=== PATIENT | male | born 1975 | race Caucasian/White ===

== ENCOUNTER 2021-11-06 02:13 | Inpatient (IN) | payer OTHER, SELFPAY ==
[2021-11-06] VITALS (7 sets, daily range): BP systolic 108–124; BP diastolic 65–77; PULSE 70–90; RESP 16–18; TEMP 36.6–36.8; O2SAT 95–98; BMI 23.4; BMI 23.7
[2021-11-06] MEDS: 0.9% Normal Saline 1,000 ML 1000 ML IV (02:54)
[2021-11-06] MEDS: Morphine 4 MG/ML Syringe IV (02:54)
[2021-11-06] MEDS: Ondansetron 4 MG/2 ML Vial IV (02:54)
[2021-11-06 02:56] LABS: Absolute Lymphocyte Count 0.98 X10^3/uL (0.83-4.51); Absolute Neutrophil Count 12.6 X10^3/uL (2.0-7.7); Basophil# 0.04 X10^3/uL; Basophil% 0.3 % (0-1); Eosinophil# 0.03 X10^3/uL; Eosinophils% 0.2 % (0-5); Hematocrit 44.3 % (40-54); Hemoglobin 15.6 g/dL (13.0-16.5); Lymphocyte # 0.98 X10^3/ul (0.83-4.51); Lymphocyte % 6.7 % (19-41); Mean Corp Hgb Conc 35.2 g/dL (32-36); Mean Corpuscular Hgb 31.8 pg (27.0-32.0); Mean Corpuscular Volume 90.4 fL (80-94); Mean Platelet Vol. 10.6 fl (6.2-12.0); Monocyte# 0.84 X10^3/uL; Monocyte% 5.8 % (0-10); NRBC Flagged by Analyzer 0 % (0-5); Neutrophil # 12.61 X10^3/uL (2.7-7.7); Neutrophil % 86.7 % (47-70); Platelet Count 341 K/mm3 (150-450); RBC Distribution Width CV 13.2 % (11.6-14.6); RBC Distribution Width SD 44.1 fl (35.1-43.9); White Blood Count 14.6 K/mm3 (4.4-11.0)
[2021-11-06 03:02] LABS: Mucous, Urine 0 SEEN /hpf (<or=2+); Red Blood Cells-Urine 0 SEEN /hpf (0-5); Squamous Epithelial Cells - UA 0 SEEN /hpf (0-5)
[2021-11-06 03:03] LABS: Color, Urine Yellow (Yellow); Glucose, Dipstick Normal (Normal); Ketone-Dipstick 5 mg/dl (Negative); Leukocyte Esterase-Dipstick 25 /ul (Negative); Nitrite-Dipstick Negative (Negative); Occult Blood-Urine Negative /ul (Negative); Protein-Dipstick 30 mg/dl (Negative); Urine Clarity Clear (Clear); Urine Urobilinogen 4 mg/dl (Normal)
[2021-11-06 03:08] LABS: ALB/GLOB Ratio 1.1 RATIO (0.9-2.4); AST(SGOT) 565 U/L (15-37); Alanine Aminotransfer ALT/SGPT 449 U/L (16-61); Albumin, Serum 3.7 g/dL (3.2-5.0); Alkaline Phosphatase 123 U/L (45-117); Anion Gap 4 (5-15); BUN 13 mg/dL (7-18); BUN/Creat Ratio 11.1 RATIO (10-20); Calcium,Total 9.5 mg/dL (8.5-10.1); Chloride 103 mmol/L (98-107); Creatinine, Serum 1.17 mg/dL (0.70-1.30); EST Glomerular Filtration Rate 71 mL/min (>60); Est Glom Filt Rate - Afr Amer 85 mL/min (>60); Estimated Creatinine Clearance 69.68 ml/min; Globulin 3.5 g/dL (2.2-4.2); Glucose 146 mg/dL (74-106); Lipase 80 U/L (73-393); Potassium 4.3 mmol/L (3.5-5.1); Protein, Total 7.2 g/dL (6.4-8.2); Sodium Level 138 mmol/L (136-145)
--- NOTE | 2021-11-06 03:11 | CT_ITS ---
STUDY: CT ABDOMEN AND PELVIS WITH CONTRAST REASON FOR EXAM: Male, 46 years old. Epigastric pain, history of choledocholithiasis RADIATION DOSAGE (If Supplied By Facility): CTDIvol = ( 12.42 ) mGy, DLP = ( 601.85 ) mGycm TECHNIQUE: Transaxial images were obtained from the dome of the diaphragm to the symphysis pubis without oral contrast. IV 100mL Isovue-300 was administered. Sagittal and coronal images were reconstructed. Individualized dose optimization techniques were used for this CT. COMPARISON: None. FINDINGS: Mild left lateral lung base dependent atelectasis. The visualized portions of the heart are within normal limits. Normal liver. There are surgical clips in the gallbladder fossa consistent with a prior cholecystectomy. Pneumobilia. Normal spleen. Normal pancreas. Normal bilateral adrenal glands. Normal right kidney. Normal left kidney. Normal visualized stomach. Normal small intestine. Normal colon. The appendix is visualized and appears normal. Normal abdominal aorta. Normal inferior vena cava. Normal retroperitoneum. Normal urinary bladder. There are prostatic calcifications. Normal abdominal wall. Normal osseous structures. CT/Abdomen/Pelvis W IV Cont ONLY IMPRESSION: Pneumobilia. Correlate with biliary instrumentation. Electronically Signed: Wes Syed MD at 4:49 EST ,
[2021-11-06 03:18] LABS: Urine Bilirubin Dipstick 1 mg/dL (Negative)
[2021-11-06 03:20] LABS: Amorphous Sediment 2+; Bacteria RARE /hpf (None Seen); White Blood Cells 0-5 SEEN /hpf (0-5)
--- NOTE | 2021-11-06 03:26 | EDS_ITS ---
HPI HPI - GI History of Present Illness Chief Complaint: Abd Pain Informant: patient and spouse/S.O. Narrative Narrative: Patient is a 46-year-old male with history of alcohol abuse, cholecystitis and choledocholithiasis complicated by acute cholangitis in March 2020 presenting with sudden onset of nausea, vomiting and cramping abdominal pain. Pain is in his epigastric region. It does not radiate. Patient states it feels like a cramping sensation. Had a low-grade temperature earlier tonight but no fever. States he has been feeling a little off after eating a bear claw earlier today and then after eating dinner which was broccoli cheese soup and salgado cheesecake he suddenly started feel bloated, had severe cramping pain in his epigastric region and then made himself vomit. He has had multiple episodes of vomiting since that were not self-induced. Denies any black or blood in his vomit. He has been having normal bowel movements with the last bowel movement this morning. Patient notes this does feel different than the last time he was hospitalized for his common bile duct. Patient states he drinks 1-4 beers a night normally. He states normally is closer to 2. States he does not just to try and get some sleep. Operative report from 07/30/2021 shows that patient had removal of the biliary stent endoscopically and had a Ai angiography. He had multiple stones and fragments removed without any complication. Patient had urgent ERCP in March 2021 for acute cholangitis related to choledocholithiasis with placement of stent. Records from 03/15/2021 shows that patient had a normal bilirubin at that time, AST of 25 and ALT of 106 with an alkaline phosphatase of 184. On admission on 03/12/2021 patient had a bilirubin of 1.4, alkaline phosphatase of 245, AST 272 and ALT 211. PFSH PFSH Home Medications NK 11/06/21 [History Last Taken Unknown] Allergy/AdvReac Type Severity Reaction Status Date / Time No Known Allergies Allergy Verified 11/06/21 02:19 Social History Smoking Status: Current every day smoker tobacco type: cigarettes ROS ROS ED Constitutional Constitutional ED: Reports chills; Denies fever(s) ENT ENT ED: Denies ear pain or sore throat Cardiovascular Cardiovascular: Denies chest pain Respiratory/Chest Respiratory/Chest: Denies cough or dyspnea Gastrointestinal Gastrointestinal: Reports abdominal pain, nausea and vomiting; Denies constipation or diarrhea Genitourinary Genitourinary ED: Denies dysuria Musculoskeletal Musculoskeletal: Denies arthralgias or myalgias Integumentary Denies rash Neurologic Neurologic: Denies headache(s) or weakness Psychiatric Psychiatric: Denies depression EXAM Physical Exam Const Vital Signs: 11/06/21 02:14 11/06/21 04:25 11/06/21 05:08 Temperature 97.8 F 98.3 F Temperature Source Oral Temporal Pulse Rate 90 89 Respiratory Rate 17 16 18 Blood Pressure 124/74 H 112/73 Blood Pressure Mean 90 86 Pulse Ox 98 95 Oxygen Delivery Method Room Air Room Air Positive well nourished and well developed General Appearance ED: well developed HEENT normocephalic and atraumatic Eyes PERRL and EOMs intact bilaterally Neck supple Resp normal respiratory effort and clear to auscultation bilaterally Cardio regular rate, regular rhythm and no murmurs GI non-distended Auscultation: normoactive bowel sounds Palpation: soft and tender epigastric; Negative for guarding or rigid Back/Spine no CVA tenderness Extremity full ROM General Extremety ED: Negative for edema or tenderness General Extremity: Negative for edema Neuro Sensorium / Orientation: alert Motor Exam: Negative for general weakness Psych mental status grossly normal Skin Lesions: no lesions Rashes: no rashes MDM MDM MDM Narrative Medical decision making narrative: Patient evaluated for sudden onset abdominal pain and low-grade temperature at home of 100.0. He is afebrile here. He is uncomfortable but no acute distress. No peritoneal findings on abdominal exam. Work-up is remarkable for leukocytosis of 14.6 and acute transaminitis with an elevated but total bili of 1.70. Lactate is 2.0. Blood cultures were added on and CT of the abdomen pelvis is obtained. This shows pneumobilia. Patient not had any recent instrumentation since July 2021. Patient is given a dose of Zosyn for concern of ascending cholangitis/choledocholithiasis. Case is discussed with MARQUITA, Dr. Brewster, who feels that admission would be reasonable and he will see the patient on the floor. Patient likely will require an ERCP. Patient has significant improvement of symptoms with Zofran and morphine in the ER. Is admitted to hospitalist service. Patient does have a history of regular alcohol use however given the acute onset of symptoms with a leukocytosis and a low-grade temperature and CT findings we will treat as if this is an infectious etiology until can be proven otherwise. Lab Data Attestation: I reviewed the patient's lab results. Labs: Laboratory Results - last 24 hr 11/06/21 11/06/21 11/06/21 02:20 02:20 02:20 WBC 14.6 H RBC 4.90 Hgb 15.6 Hct 44.3 MCV 90.4 MCH 31.8 MCHC 35.2 RDW Std Deviation 44.1 H RDW Coeff of Faizan 13.2 Plt Count 341 MPV 10.6 Immature Gran % (Auto) 0.300 Neut % (Auto) 86.7 H Lymph % (Auto) 6.7 L [place] % (Auto) 5.8 Eos % (Auto) 0.2 Baso % (Auto) 0.3 Absolute Neuts (auto) 12.6 H Absolute Lymphs (auto) 0.98 Nucleated RBC % 0 Sodium 138 Potassium 4.3 Chloride 103 Carbon Dioxide 31.0 Anion Gap 4 L BUN 13 Creatinine 1.17 Estim Creat Clear Calc 69.68 Est GFR (MDRD) Af Amer 85 Est GFR (MDRD) Non-Af 71 BUN/Creatinine Ratio 11.1 Glucose 146 H Lactic Acid 2.0 Calcium 9.5 Total Bilirubin 1.70 H AST 565 H ALT 449 H Alkaline Phosphatase 123 H Total Protein 7.2 Albumin 3.7 Globulin 3.5 Albumin/Globulin Ratio 1.1 Lipase 80 Urine Color Urine Clarity Urine pH Ur Specific [place] Urine Protein Urine Glucose (UA) Urine Ketones Urine Occult Blood Urine Nitrite Urine Bilirubin Urine Urobilinogen Ur Leukocyte Esterase Urine RBC Urine WBC Ur Squamous Epith Cells Amorphous Sediment Urine Bacteria Urine Mucus 11/06/21 02:59 WBC RBC Hgb Hct MCV MCH MCHC RDW Std Deviation RDW Coeff of Faizan Plt Count MPV Immature Gran % (Auto) Neut % (Auto) Lymph % (Auto) [place] % (Auto) Eos % (Auto) Baso % (Auto) Absolute Neuts (auto) Absolute Lymphs (auto) Nucleated RBC % Sodium Potassium Chloride Carbon Dioxide Anion Gap BUN Creatinine Estim Creat Clear Calc Est GFR (MDRD) Af Amer Est GFR (MDRD) Non-Af BUN/Creatinine Ratio Glucose Lactic Acid Calcium Total Bilirubin AST ALT Alkaline Phosphatase Total Protein Albumin Globulin Albumin/Globulin Ratio Lipase Urine Color Yellow Urine Clarity Clear Urine pH 8.0 Ur Specific [place] 1.010 Urine Protein 30 H Urine Glucose (UA) Normal Urine Ketones 5 H Urine Occult Blood Negative Urine Nitrite Negative Urine Bilirubin 1 H Urine Urobilinogen 4 H Ur Leukocyte Esterase 25 H Urine RBC 0 SEEN Urine WBC 0-5 SEEN Ur Squamous Epith Cells 0 SEEN Amorphous Sediment 2+ Urine Bacteria RARE Urine Mucus 0 SEEN Radiography Diagnostic Testing: Clinical Impression(s) from Imaging Studies Abdomen/Pelvis CT 11/06/21 03:11 IMPRESSION: Pneumobilia. Correlate with biliary instrumentation. Electronically Signed: Wes Syed MD at 4:49 EST , Discharge Plan Triage Chief Complaint: Abd Pain ED Provider: Niesha Yip Dx/Rx/DC Orders Clinical Impression: Ascending cholangitis, Pneumobilia, Transaminitis Prescriptions: No Action NK RF: 0 Primary Care Provider: Care Physician,No Primary Referrals: Care Physician,No Primary [Primary Care Provider] - Disposition Disposition: Acute Care Hospital [facility] [place]
--- NOTE | 2021-11-06 05:46 | PCM.HP.STD ---
[facility] - General General Date of Admission: 11/06/21 HPI Narrative GARRETT CHRISTENSEN, is a 46 M with significant history of cholecystectomy, choledocholithiasis with possible ascending cholangitis status post biliary placement and removal who presents to the emergency department with a severe persistent nonradiating epigastric cramping pain that started few hours before presentation. He denied any aggravating factors. Vomiting helped improve his pain. And associated with her symptoms is nausea and vomiting. About 10 or more years ago patient had a cholecystotomy secondary to gallstones. About a year ago he had a choledocholithiasis with possible ascending cholangitis and he had biliary stent placed which was later removed. Although the characteristics his present symptom is similar to that of last year, his epigastric pain last year was sharp while his present pain is cramping. He denied any jaundiced. However upon prompting his significant other who was at the bedside thinks that patient's bilateral arms are jaundiced but patient denies. [facility] Medical History (Updated 11/06/21 @ 06:[address] Efraín Virgen MD) Choledocholithiasis Home Medications NK 11/06/21 [History Last Taken Unknown] Allergy/AdvReac Type Severity Reaction Status Date / Time No Known Allergies Allergy Verified 11/06/21 02:19 Family History (Updated 11/06/21 @ 06:[address] Efraín Virgen MD) Other Diabetes Heart disease Hypertension Social History (Updated 11/06/21 @ 06:[address] Efraín Virgen MD) Smoking Status: Current every day smoker tobacco type: cigarettes alcohol intake: current ROS ROS Narrative Constitutional: Reports low-grade fever (100.0 Fahrenheit) and chills. Denies change in weight Eyes: Denies blurry vision, change in eye color, change in vision, discharge from eye(s), double vision, erythema, eye pain, loss of vision or other HEENT: Denies abnormal hearing, dysphagia, ear pain, epistaxis, headache(s), hearing loss, nasal congestion, nasal discharge, post nasal drip, sinus pressure, sore throat or other Cardiovascular: Denies chest pain or palpitations. Denies dyspnea on exertion, orthopnea and paroxysmal nocturnal dyspnea Respiratory/Chest: Denies cough, excessive phlegm production, shortness of breath with exertion and wheezing Gastrointestinal: Reports epigastric pain, nausea and vomiting. Denies constipation, diarrhea, dyspepsia, hematemesis, hematochezia, loose stools, melena, or other Genitourinary: Denies burning urination, difficulty urinating, dysuria, hematuria, nocturia, urinary frequency, urinary hesitancy, urinary incontinence, urinary urgency or other Musculoskeletal: Denies arthralgias, back pain, joint pain, joint stiffness, joint swelling, myalgias, neck pain or other Neurologic: Denies abnormal gait, abnormal speech, confusion, disequilibrium, dizziness, focal weakness, headache(s), numbness, paresthesias, seizure-like activity, seizures, syncope, tingling, tremor(s) or other Psychiatric: Denies anxiety, depression, homicidal ideation, suicidal ideation or other Endocrinology: Denies change in body appearance, cold intolerance, excessive sweating, heat intolerance, polydipsia, polyuria or other Hematologic/Lymphatic: Denies anemia, easy bleeding, easy bruising, lymphadenopathy or other Integumentary: Denies rashes Allergic/Immunologic: Denies rhinitis, hives, eczema, asthma or other Vital Signs Vital Signs Vital Signs: 11/06/21 02:14 11/06/21 04:25 11/06/21 05:08 Temperature 97.8 F 98.3 F Temperature Source Oral Temporal Pulse Rate 90 89 Respiratory Rate 17 16 18 Blood Pressure 124/74 H 112/73 Blood Pressure Mean 90 86 Pulse Ox 98 95 Oxygen Delivery Method Room Air Room Air Weight Weight: 65.9 kg Body Mass Index (BMI) 23.4 Physical Exam Narrative Physical exam: General: Well-nourished, well-developed. Head: Normocephalic, atraumatic, no tenderness Eyes: PERRLA, EOMI ENT, no trauma, moist mucous membranes, no rhinorrhea Neck: Nontender, full range of motion, no spinal tenderness, deformities, step-off CVS: Regular rate and rhythm. S1-S2 present. No murmur, gallop or rub. Respiratory : clear to auscultation bilaterally, chest wall nontender, no wheezing Abdomen: Soft, nontender, nondistended, normal bowel sounds, no masses : Deferred Back: Nontender, no CVA tenderness, no midline spinal tenderness, deformities, step-offs Extremities: Nontender full range of motion, no trauma Skin: Normal color of other parts of body but bilateral arms yellowish. No trauma, abrasions Neuro: Alert, oriented, cranial nerves II through XII grossly intact. Psychiatry: Normal mood. Normal affect. Not depressed. Not anxious. Results Lab / Micro Data Result Diagrams: 11/06/21 02:20 11/06/21 02:20 Labs: Laboratory Results - last 24 hr 11/06/21 02:20: WBC 14.6 H, RBC 4.90, Hgb 15.6, Hct 44.3, MCV 90.4, MCH 31.8, MCHC 35.2, RDW Std Deviation 44.1 H, RDW Coeff of Faizan 13.2, Plt Count 341, MPV 10.6, Immature Gran % (Auto) 0.300, Neut % (Auto) 86.7 H, Lymph % (Auto) 6.7 L, [place] % (Auto) 5.8, Eos % (Auto) 0.2, Baso % (Auto) 0.3, Absolute Neuts (auto) 12.6 H, Absolute Lymphs (auto) 0.98, Nucleated RBC % 0 11/06/21 02:20: Sodium 138, Potassium 4.3, Chloride 103, Carbon Dioxide 31.0, Anion Gap 4 L, BUN 13, Creatinine 1.17, Estim Creat Clear Calc 69.68, Est GFR (MDRD) Af Amer 85, Est GFR (MDRD) Non-Af 71, BUN/Creatinine Ratio 11.1, Glucose 146 H, Calcium 9.5, Total Bilirubin 1.70 H, AST 565 H, ALT 449 H, Alkaline Phosphatase 123 H, Total Protein 7.2, Albumin 3.7, Globulin 3.5, Albumin/Globulin Ratio 1.1, Lipase 80 11/06/21 02:20: Lactic Acid 2.0 11/06/21 02:59: Urine Color Yellow, Urine Clarity Clear, Urine pH 8.0, Ur Specific [place] 1.010, Urine Protein 30 H, Urine Glucose (UA) Normal, Urine Ketones 5 H, Urine Occult Blood Negative, Urine Nitrite Negative, Urine Bilirubin 1 H, Urine Urobilinogen 4 H, Ur Leukocyte Esterase 25 H, Urine RBC 0 SEEN, Urine WBC 0-5 SEEN, Ur Squamous Epith Cells 0 SEEN, Amorphous Sediment 2+, Urine Bacteria RARE, Urine Mucus 0 SEEN Radiology Impression Abdomen/Pelvis CT 11/06/21 03:11 IMPRESSION: Pneumobilia. Correlate with biliary instrumentation. Electronically Signed: Wes Syed MD at 4:49 EST , Assessment & Plan Assessment/Plan (1) Choledocholithiasis: (2) Ascending cholangitis: PLAN: Suspected cholangitis. Patient reported chills and a low-grade fever. Review of labs showed white count of 14.6. Abdomen and pelvis CT was visualized and independently interpreted and I agree with radiologist interpretation of pneumobilia and absent gallbladder. Review of labs showed transaminitis (AST 565, ALT 449); mildly elevated alkaline phosphatase (123) and elevated total bilirubin (1.70). Emergent department doctor upon review of [facility] reports that on 03/15/2021 patient AST was 25, ALT was 106 and alkaline phosphatase was 184 at that time. Further per report from ED doctor on 03/12/2021 bilirubin was 1.4, alkaline phosphatase was 245, AST was 272 and ALT was 211. Will trend CBC and CMP. Gentle IV hydration. Morphine IV as needed for pain. Zofran IV as needed for nausea/vomiting. Emergent bilateral discussed the case with a GI who will follow. GI consult. We will keep patient n.p.o. Tobacco abuse Smokes about 2 packs/day. Counseled. Nicotine patch prescribed Alcohol abuse Drinks about 1 to 4 cans of beer per day. Reportedly previously he was a heavy drinker. Denies history of withdrawal with previous hospitalizations. Clinical monitoring. DVT prophylaxis SCD ordered. Charges/Coding Visit Charges Inpatient E&M: 51908 Init Hosp L3
[2021-11-06 06:53] LABS: Reflex Lactate? Y
[2021-11-06] MEDS: 0.9% Normal Saline 1,000 ML 75 ML IV (06:57)
[2021-11-06 07:43] LABS: Lactic Acid 1.8 mmol/L (0.4-1.9)
--- NOTE | 2021-11-06 09:09 | US_ITS ---
STUDY: ABDOMINAL ULTRASOUND - RIGHT UPPER QUADRANT REASON FOR VISIT: Male, 46 years old Ascending cholangitis, RUQ pain, jaundice, fever -- Elevated LFT -- HX OF CHOLECYSTECTOMY 2011 TECHNIQUE: Ultrasound evaluation of the right upper quadrant was performed with real-time and static padilla-scale imaging. TECHNICAL QUALITY: Adequate. COMPARISON: None. FINDINGS: Liver: The liver measures 18 cm. There is a heterogeneous echogenicity of the liver. There are somewhat dilated biliary ducts. Artifacts consistent with pneumobilia There is hepatic color flow. The direction of portal flow is hepatopetal. There is no demonstrated mass lesion. Gallbladder: The patient is status post cholecystectomy. Common Bile Duct (C.B.D.): The common bile duct measures 7 mm. Pancreas: Normal size of the head, body and tail of the pancreas. There is normal echogenicity of the pancreas. There is no demonstrated pancreatic mass or cyst. Minimal prominence of the pancreatic duct. Right Kidney: Normal size of the right kidney. The right kidney measures 10.6 x 5.5 x 4.4 cm. Normal renal cortex. The right cortex measures 1.3 cm. There is no demonstrated renal mass or cyst. There is no right hydronephrosis. US/Abdomen Limited IMPRESSION: 1. Hepatomegaly. 2. Somewhat heterogeneous liver which may reflect fatty infiltration or hepatomegaly disease. 3. Status post cystectomy. 4. Pneumobilia. Electronically Signed: Slade Lloyd, at 15:50 EST ,
--- NOTE | 2021-11-06 11:17 | EX.PCM.CON.G ---
HPI Consult Data Date of Consult: 11/06/21 HPI Narrative HPI Narrative: GARRETT CHRISTENSEN, is a 46 M who presents with past medical history of cholecystitis status post cholecystectomy. He has had 2 episodes of acute choledocholithiasis 1 prior to him undergoing cholecystectomy and the second 1 approximately year later requiring ERCP on 2 separate occasions. His last ERCP was back in June when he had a stent removal from the previous ERCP with stone removal and stent placement. He arrives here with worsening abdominal pain with fever and chills. Patient came to the ED for evaluation. On biochemical evaluation he was discovered to have a bilirubin of 1.7, alkaline phosphatase 134, AST of 500 and ALT of 500. His white blood cell count was also elevated at 14. He was started on IV antibiotics and a CT scan abdomen pelvis was ordered. It did show pneumobilia but no filling defect in the common bile duct. It also showed intra and extrahepatic ductal dilation. At this time he is not have any abdominal pain. An ultrasound was ordered along with repeat labs. [facility] Medical History Choledocholithiasis Smoker Home Medications NK 11/06/21 [History Last Taken Unknown] Allergy/AdvReac Type Severity Reaction Status Date / Time No Known Allergies Allergy Verified 11/06/21 02:19 Family History (Updated 11/06/21 @ 06:[address] Efraín Virgen MD) Other Diabetes Heart disease Hypertension Social History (Updated 11/06/21 @ 06:[address] Efraín Virgen MD) Smoking Status: Current every day smoker tobacco type: cigarettes alcohol intake: current ROS Review of Systems ROS Unobtainable: other Constitutional Constitutional: Denies fatigue, fever(s), poor appetite, weight gain or weight loss ENT HEENT: Denies mouth lesions Cardiovascular Cardiovascular: Denies abdominal bloating, abdominal edema or abdominal pain Respiratory/Chest Respiratory/Chest: Denies change in mental status, change in phlegm color, chest congestion or chest tightness Gastrointestinal Gastrointestinal: Denies belching, bloating, change in bowel habits, change in stool character, chewing difficulty, coffee ground emesis, constipation, cramping, diarrhea, dyspepsia, dysphagia, early satiety, excessive flatus, fecal incontinence, heartburn, hematemesis, hematochezia, hemorrhoids, loose stools, melena, nausea, odynophagia, rectal bleeding, tenesmus, vomiting or weight changes Genitourinary Genitourinary: Denies abdominal discomfort, burning urination or itching Musculoskeletal Musculoskeletal: Reports as per HPI; Denies muscle weakness or myalgias Integumentary Integumentary: Denies jaundice Neurologic Neurologic: Denies lack of coordination or weakness Psychiatric Psychiatric: Denies confusion, depression, memory loss, mood swings, paranoia or suicidal ideation Endocrine Endocrinology: Denies systems reviewed and no addt'l complaints, except as documented Hematologic/Lymphatic Hematologic/Lymphatic: Denies anemia, easy bleeding, easy bruising or lymphadenopathy Allergic/Immunologic Allergic/Immunologic: Denies systems reviewed and no addt'l complaints, except as documented Physical Exam Const alert General Appearance: cooperative Orientation / Consciousness: oriented to person HEENT hearing grossly normal bilaterally Head and Scalp: normal to inspection Face and Sinus: face symmetric Nose: external nose normal Mouth: oral and palatal mucosa normal Eyes conjunctivae normal General Eye: normal appearance of both eyes Neck full ROM General: normal visual inspection Lymph Lymphatic: no lymphadenopathy noted Chest inspection of chest normal and palpation of chest normal Chest: symmetrical chest wall rise Resp normal respiratory effort Effort and Inspection: able to speak in complete sentences Cardio regular rate GI non-distended Percussion: normal to percussion Rectal Exam: deferred Neuro Speech: speech normal Gait (Neuro): normal gait Lab / Micro Data Result Diagrams: 11/06/21 02:20 11/06/21 02:20 Labs: Laboratory Results - last 24 hr 11/06/21 02:20: WBC 14.6 H, RBC 4.90, Hgb 15.6, Hct 44.3, MCV 90.4, MCH 31.8, MCHC 35.2, RDW Std Deviation 44.1 H, RDW Coeff of Faizan 13.2, Plt Count 341, MPV 10.6, Immature Gran % (Auto) 0.300, Neut % (Auto) 86.7 H, Lymph % (Auto) 6.7 L, [place] % (Auto) 5.8, Eos % (Auto) 0.2, Baso % (Auto) 0.3, Absolute Neuts (auto) 12.6 H, Absolute Lymphs (auto) 0.98, Nucleated RBC % 0 11/06/21 02:20: Sodium 138, Potassium 4.3, Chloride 103, Carbon Dioxide 31.0, Anion Gap 4 L, BUN 13, Creatinine 1.17, Estim Creat Clear Calc 69.68, Est GFR (MDRD) Af Amer 85, Est GFR (MDRD) Non-Af 71, BUN/Creatinine Ratio 11.1, Glucose 146 H, Calcium 9.5, Total Bilirubin 1.70 H, AST 565 H, ALT 449 H, Alkaline Phosphatase 123 H, Total Protein 7.2, Albumin 3.7, Globulin 3.5, Albumin/Globulin Ratio 1.1, Lipase 80 11/06/21 02:20: Lactic Acid 2.0 11/06/21 02:59: Urine Color Yellow, Urine Clarity Clear, Urine pH 8.0, Ur Specific [place] 1.010, Urine Protein 30 H, Urine Glucose (UA) Normal, Urine Ketones 5 H, Urine Occult Blood Negative, Urine Nitrite Negative, Urine Bilirubin 1 H, Urine Urobilinogen 4 H, Ur Leukocyte Esterase 25 H, Urine RBC 0 SEEN, Urine WBC 0-5 SEEN, Ur Squamous Epith Cells 0 SEEN, Amorphous Sediment 2+, Urine Bacteria RARE, Urine Mucus 0 SEEN 11/06/21 07:10: Lactic Acid 1.8 Radiology Impression Abdomen/Pelvis CT 11/06/21 03:11 IMPRESSION: Pneumobilia. Correlate with biliary instrumentation. Electronically Signed: Wes Syed MD at 4:49 EST , Assessment & Plan Assessment/Plan (1) Ascending cholangitis: PLAN: At this time he is not showing any signs of a sending cholangitis. I recommend a repeat his CBC, CMP. I recommend to get blood cultures. If his CBC, CMP are improving and if his ultrasound does not show any filling defects in his common bile duct then he can eat. (2) Pneumobilia: PLAN: I recommend ursodiol 250 or 300 mg twice a day for 1 year to increase bile flow and change his bile. Charges/Coding Visit Charges Inpatient E&M: 45349 Init Hosp L3
[2021-11-06 12:28] LABS: AST(SGOT) 455 U/L (15-37); Alanine Aminotransfer ALT/SGPT 524 U/L (16-61); Albumin, Serum 3.3 g/dL (3.2-5.0); Alkaline Phosphatase 120 U/L (45-117); Bilirubin, Direct 0.98 mg/dL (0.00-0.30); GGTP 560 U/L (15-85); Globulin 3.5 g/dL (2.2-4.2); Protein, Total 6.8 g/dL (6.4-8.2)
--- NOTE | 2021-11-06 12:28 | PN.HOSP_ITS ---
Subjective Subjective The patient has no fever or chills. No tachycardia. Blood pressure normal. Patient abdominal pain has resolved. Patient admitted with fever chills, severe right upper quadrant abdominal pain, 10/10 in intensity. Objective Data Objective Data Vital Signs: Vital Signs Temp Pulse Resp BP Pulse Ox 98.1 F 87 16 111/73 97 11/06/21 06:24 11/06/21 06:24 11/06/21 06:24 11/06/21 06:24 11/06/21 06:24 Oxygen Delivery Method Room Air Weight: 146 lb 13.246 oz Body Mass Index (BMI) 23.7 Intake & Output: Intake and Output for Last 24 Hours 11/04/21 11/05/21 11/06/21 23:59 23:59 23:59 Intake Total 1050 / 1050 Balance 1050 / 1050 Lab / Micro Data Result Diagrams: 11/06/21 02:20 11/06/21 02:20 Labs: Laboratory Results - last 24 hr 11/06/21 02:20: WBC 14.6 H, RBC 4.90, Hgb 15.6, Hct 44.3, MCV 90.4, MCH 31.8, MCHC 35.2, RDW Std Deviation 44.1 H, RDW Coeff of Faizan 13.2, Plt Count 341, MPV 10.6, Immature Gran % (Auto) 0.300, Neut % (Auto) 86.7 H, Lymph % (Auto) 6.7 L, [place] % (Auto) 5.8, Eos % (Auto) 0.2, Baso % (Auto) 0.3, Absolute Neuts (auto) 12.6 H, Absolute Lymphs (auto) 0.98, Nucleated RBC % 0 11/06/21 02:20: Sodium 138, Potassium 4.3, Chloride 103, Carbon Dioxide 31.0, Anion Gap 4 L, BUN 13, Creatinine 1.17, Estim Creat Clear Calc 69.68, Est GFR (MDRD) Af Amer 85, Est GFR (MDRD) Non-Af 71, BUN/Creatinine Ratio 11.1, Glucose 146 H, Calcium 9.5, Total Bilirubin 1.70 H, AST 565 H, ALT 449 H, Alkaline Phosphatase 123 H, Total Protein 7.2, Albumin 3.7, Globulin 3.5, Albumin/Globulin Ratio 1.1, Lipase 80 11/06/21 02:20: Lactic Acid 2.0 11/06/21 02:59: Urine Color Yellow, Urine Clarity Clear, Urine pH 8.0, Ur Specific York 1.010, Urine Protein 30 H, Urine Glucose (UA) Normal, Urine Ketones 5 H, Urine Occult Blood Negative, Urine Nitrite Negative, Urine Bilirubin 1 H, Urine Urobilinogen 4 H, Ur Leukocyte Esterase 25 H, Urine RBC 0 SEEN, Urine WBC 0-5 SEEN, Ur Squamous Epith Cells 0 SEEN, Amorphous Sediment 2+, Urine Bacteria RARE, Urine Mucus 0 SEEN Radiography Diagnostic Testing: Radiology Impression Abdomen/Pelvis CT 11/06/21 03:11 IMPRESSION: Pneumobilia. Correlate with biliary instrumentation. Electronically Signed: Wes Syed MD at 4:49 EST , Physical Exam Narrative General: Alert, Oriented x3, Cooperative HEENT: Atraumatic, PERRLA, EOMI, Normocephalic. No icterus. Oral: No Gingival or Mucosal Lesions/ Ulcerations Neck: Supple, No JVD, Negative Carotid Bruits Lungs: Air entry diminished in bilateral lung bases. No crepitation/rhonchi Cardiovascular: Regular rate, Regular Rhythm, Normal S1, Normal S2, No murmurs Abdomen: Soft, mild tenderness on the right upper quadrant on deep palpation. Bowel Sounds Present, Non-Distended. Liver not enlarged. No palpable mass. : No renal angle tenderness. No suprapubic tenderness. Extremities: No edema, Capillary Refill Less than 3 Seconds Skin: No rashes, No breakdown Musculoskeletal: No Tenderness to Palpation of Joints or Extremities Neurological: Cranial nerves II-XII grossly intact, DTR 2+/4 and Symmetrical, Neuro grossly intact Psych/Mental Status: Normal Affect, Appropriate. Assessment & Plan Assessment/Plan (1) Choledocholithiasis: (2) Ascending cholangitis: PLAN: 1. Suspected ascending cholangitis: Patient admitted with right upper quadrant abdominal pain, fever and chills, leukocytosis with left shift but clinically did not had jaundice. Patient has seen metallic yarn slitting machine operator Dr. Orr in [facility] and had 2 episodes of choledocholithiasis. First time he had cholecystectomy. Second episode in March 2020 when he had ERCP with a stent placement then repeat ERCP in first week of July for stent removal. Since then he did not had issues of abdominal pain. In the morning patient is afebrile, abdominal pain has resolved. Patient wants to eat and clear liquid ordered. Discussed with metallic yarn slitting machine operator Dr. Brewster. We agreed on repeating liver profile. Admitting liver chemistry shows total bilirubin 1.7. ALT and AST elevated about 10 times normal. Alkaline phosphatase 123. Lipase normal. Anion gap below 4. CT abdomen independently reviewed. It shows pneumobilia with surgical clips has been requested today. Normal spleen and pancreas. Right upper quadrant sonogram ordered. Started on ursodiol to 50 mg twice daily to be continued for 1 year. GI consult reviewed and appreciated. No plan for ERCP/MRCP. 2. Chronic chronic cigarette smoking/nicotine use and dependence: The patient smokes cigarettes about 2 packs/day. Nicotine patch prescribed. 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 Denies history of chronic shortness of breath/dyspnea but has mild smoker's cough as he described. Never been tested for PFT. 3. Chronic alcohol abuse Drinks about 1 to 4 cans of beer per day. Reportedly previously he was a heavy drinker. Denies history of withdrawal with previous hospitalizations. Clinical monitoring. 4. DVT prophylaxis SCD ordered. Charges/Coding Visit Charges Inpatient E&M: 77755 Subs Hosp L2
[2021-11-06] MEDS: Ursodiol 250 MG Tablet PO ×2 (13:18→21:39)
--- NOTE | 2021-11-06 16:15 | CASEMGMT ---
RN CM SPECIAL EVENTS MANAGER CM to room to meet with patient for initial transition planning/care coordination assessment. CHIP DOLAN introduced self and role at [facility]. Pt voices understanding and consents to assessment at this time. Pt resting in bed in no distress at this time. Pt is A/O at this time and answers all questions appropriately. Care providers, pharmacy, and demographics verified/updated at this time. PCP: No PCP. Pt provided w/list of local PCP's. Specialists:Dr Orr @ [facility]--gastroenterology Preferred Pharmacy: [facility] [place] Insurance: [employer] Living Will/HPOA: Pt does not currently have LW/HCPOA and declines info at this time. Pt made aware that he can contact as an out-pt and make appt in the future if he decides he would like to talk with someone about this or would like to utilize [facility] social work for advanced directive completion. Given Commissioning Editor Rac card with information and contact number. Pt expresses understanding. LNOK: Father, Timi Claros. Living Arrangements: Lives w/his sig other, Vianey Barcenas in mobile home w/4 steps to enter. Independent w/ADL's and IADL's. 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 ETOH: Drinks 0-4 beers/day. States he used to drink a lot more until he got a DUI. He states he only drinks now to help him sleep. Denies wanting any resources to help quit. Smoker: 2 PPD Transportation: Pt states drives self and states no transportation concerns at this time. DME: Denies using any DME and denies needs. HHC/SNF: No hx of either. No needs identified. Pt wishes to return home and states has no concerns with going home at time of discharge. Pt voices no further concerns/needs at this time. Advised pt to ask for CM if any further questions/concerns/needs arise. Voices understanding. PLAN: Home w/discharge plans in place. Mello BUCHANAN RN, CM
[2021-11-07] VITALS (7 sets, daily range): BP systolic 113–141; BP diastolic 73–87; PULSE 58–97; RESP 16–18; TEMP 36.4–37; O2SAT 95–100
--- NOTE | 2021-11-07 | FLU_PTH ---
PATIENT: GARRETT CHRISTENSEN LOC: [facility]3 U#:[id number] AGE/SX: 46/M ROOM: [facility] RE11/06/[address]: Dr. Rene Bird MD : 1975 BED: 1 DIS: 11/07/2021 SPEC #: [id number] RECD: 11/07/21 09:19 STATUS: CHARISMA REQ #: [id number] BETTY: 11/07/21 00:[address]: Luis Felipe Brewster DEPT: CYTOLOGY RECD BY: Jacob Currie ENTERED: 11/08/21 08:28 SP TYPE: Fluid OTHR DR: MD Dr. Rene Pearson MD Dr. Rahsaan Friend, DO No Primary Care Phys Tissues: Bile duct, NOS Procedures: Special Stain Group II Surgery Specimen Level IV Comments: @ Ordering doctor for SSII edited from to @ by MOHSEN at 11/08/21923 @ Ordering doctor for SUIV edited from to DR.RFRIEN Anna by MOHSEN at 11/08/21923 @ Submitting doctor edited from to @ by MOHSEN at 11/08/21923 HEADER OPERATION: ERCP PRE-OP DIAGNOSIS: Ascending cholangitis TISSUE SUBMITTED: A ? Distal common bile duct brush tip, B - Distal common bile duct slides x3 DIAGNOSIS CYTOLOGY A. Common bile duct brushings (cell block): Negative for malignant cells. See comment. B. Common bile duct brushing (smears): Negative for malignant cells. AM:elinor 11/09/2021 COMMENT A. The specimen is essentially acellular. Clinical correlation is suggested. CYTOLOGY STUDY Slides are reviewed. CYTOLOGY GROSS A - Received is a metallic endoscopic cytobrush with adherent minute fragments of myers-red tissue brush in 2 ml of clear red fluid and labeled with the patient's name and and designated per the requisition as brush. The material is dislodged from the brush and submitted for cytology preparation including cell block. B - Received are three smears labeled with the patient's name and designated per the requisition as distal common bile duct. Submitted for staining. / elinor 11/08/2021 TC:5 CPT: 04309, 96397
[2021-11-07 06:18] LABS: Absolute Lymphocyte Count 0.89 X10^3/uL (0.83-4.51); Absolute Neutrophil Count 4.9 X10^3/uL (2.0-7.7); Basophil# 0.05 X10^3/uL; Basophil% 0.7 % (0-1); Eosinophil# 0.35 X10^3/uL; Eosinophils% 5.2 % (0-5); Hematocrit 43.5 % (40-54); Hemoglobin 14.4 g/dL (13.0-16.5); Lymphocyte # 0.89 X10^3/ul (0.83-4.51); Lymphocyte % 13.2 % (19-41); Mean Corp Hgb Conc 33.1 g/dL (32-36); Mean Corpuscular Hgb 30.6 pg (27.0-32.0); Mean Corpuscular Volume 92.6 fL (80-94); Mean Platelet Vol. 10.4 fl (6.2-12.0); Monocyte# 0.55 X10^3/uL; Monocyte% 8.2 % (0-10); NRBC Flagged by Analyzer 0 % (0-5); Neutrophil # 4.88 X10^3/uL (2.7-7.7); Neutrophil % 72.6 % (47-70); Platelet Count 282 K/mm3 (150-450); RBC Distribution Width CV 13.8 % (11.6-14.6); RBC Distribution Width SD 47.5 fl (35.1-43.9); White Blood Count 6.7 K/mm3 (4.4-11.0)
[2021-11-07 06:45] LABS: ALB/GLOB Ratio 0.8 RATIO (0.9-2.4); AST(SGOT) 124 U/L (15-37); Alanine Aminotransfer ALT/SGPT 349 U/L (16-61); Albumin, Serum 3.1 g/dL (3.2-5.0); Alkaline Phosphatase 154 U/L (45-117); Anion Gap 2 (5-15); BUN 13 mg/dL (7-18); BUN/Creat Ratio 12.5 RATIO (10-20); Calcium,Total 8.9 mg/dL (8.5-10.1); Chloride 109 mmol/L (98-107); Creatinine, Serum 1.04 mg/dL (0.70-1.30); EST Glomerular Filtration Rate 81 mL/min (>60); Est Glom Filt Rate - Afr Amer 98 mL/min (>60); Estimated Creatinine Clearance 78.39 ml/min; Globulin 3.7 g/dL (2.2-4.2); Glucose 101 mg/dL (74-106); Protein, Total 6.8 g/dL (6.4-8.2); Sodium Level 137 mmol/L (136-145)
--- NOTE | 2021-11-07 08:00 | RAD_ITS ---
ERCP INDICATION: Abdominal pain. Fluoroscopy time: 1:58 Images obtained: 13 FINDINGS: Status post cholecystectomy. Moderate extrahepatic and intrahepatic biliary ductal dilatation treated with placement of a stent in the distal common bile duct. IMPRESSION: Stricture of the distal common bile duct treated with the stent placement. Electronically Signed: Travon Emery MD at 9:24 EST , RAD/ERCP Biliary Only
--- NOTE | 2021-11-07 09:07 | OP.CCLET_ITS ---
11/07/2021 No Primary Care Physician Re : ERCP procedure for Chuck Claros Dear Care Physician This procedure was performed on Sunday, November 07, 2021. My impressions and recommendations are as follows: Impressions : - The entire main bile duct was dilated, uncertain significance. - The patient has had a cholecystectomy. - Choledocholithiasis was found. Complete removal was accomplished by biliary sphincterotomy and balloon extraction. - A biliary sphincterotomy was performed. - The biliary tree was swept. Recommendations : My findings are described in the full procedure note, which is enclosed. If I can be of further assistance, please feel free to contact me at . Sincerely, Luis Felipe Brewster, 11/07/2021 9:06:54 AM This report has been signed electronically.
--- NOTE | 2021-11-07 09:07 | OP.ERCP_ITS ---
Patient Name: Chuck Claros Procedure Date: 11/07/2021 8:00 AM Date of : 1975 Age: 46 Procedure: ERCP Indications: Common bile duct stone(s), Suspected ascending cholangitis Providers: Luis Felipe Brewster DO Medicines: General Anesthesia Patient Profile: This is a 46 year old male. Refer to note in patient chart for documentation of history and physical. Patient has symptoms of acute right upper quadrant abdominal pain, acute jaundice and acute vomiting. He is status post ERCP for stone removal within the past six months. Complications: No immediate complications. Procedure: Pre-Anesthesia Assessment: - Prior to the procedure, a History and Physical was performed, and patient medications and allergies were reviewed. The patient is competent. The risks and benefits of the procedure and the sedation options and risks were discussed with the patient. All questions were answered and informed consent was obtained. Patient identification and proposed procedure were verified by the physician in the pre-procedure area. Mental Status Examination: alert and oriented. Airway Examination: normal oropharyngeal airway and neck mobility. Respiratory Examination: clear to auscultation. CV Examination: normal. Prophylactic Antibiotics: The patient does not require prophylactic antibiotics. Prior Anticoagulants: The patient has taken no previous anticoagulant or antiplatelet agents. After reviewing the risks and benefits, the patient was deemed in satisfactory condition to undergo the procedure. The anesthesia plan was to use moderate sedation / analgesia (conscious sedation). Immediately prior to administration of medications, the patient was re-assessed for adequacy to receive sedatives. The heart rate, respiratory rate, oxygen saturations, blood pressure, adequacy of pulmonary ventilation, and response to care were monitored throughout the procedure. The physical status of the patient was re-assessed after the procedure. After obtaining informed consent, the scope was passed under direct vision. Throughout the procedure, the patient's blood pressure, pulse, and oxygen saturations were monitored continuously. The [id number] endoscope was introduced through the mouth, and advanced to the duodenum and used to cannulate the bile duct. The ERCP was accomplished without difficulty. The patient tolerated the procedure well. Moderate Sedation: Moderate (conscious) sedation was administered by the endoscopy nurse and supervised by the endoscopist. The patient's oxygen saturation, heart rate, blood pressure and response to care were monitored. Total physician intraservice time was 15 minutes. Scope In: 8:35:59 AM Scope Out: 9:04:15 AM Total Procedure Duration Time 0 hours 28 minutes 16 seconds Findings: The labor relations manager film was normal. The esophagus was successfully intubated under direct vision. The scope was advanced to a normal major papilla in the descending duodenum without detailed examination of the pharynx, larynx and associated structures, and upper GI tract. The upper GI tract was grossly normal. The bile duct was deeply cannulated with the short-nosed traction sphincterotome. Contrast was injected. I personally interpreted the bile duct images. There was brisk flow of contrast through the ducts. Image quality was excellent. Contrast extended to the entire biliary tree. Opacification of the main bile duct was successful. The maximum diameter of the ducts was 10 mm. The lower third of the main bile duct contained one stone, which was 6 mm in diameter. The main bile duct was diffusely dilated, uncertain significance. The largest diameter was 10 mm. A cholecystectomy had been performed. A straight Roadrunner wire was passed into the biliary tree. A 5 mm biliary sphincterotomy was made with a traction (standard) sphincterotome using ERBE electrocautery. The sphincterotomy oozed blood. The biliary tree was swept with a 12 mm balloon starting at the lower third of the main duct. Sludge was swept from the duct. All stones were removed. Dilation of the common bile duct with a 6-7-8 mm balloon (to a maximum balloon size of 8 mm) dilator was successful. One 10 mm by 6 cm covered metal stent was placed 5 cm into the common bile duct. Bile flowed through the stent. The stent was in good position. Cells for cytology were obtained by brushing in the lower third of the main bile duct. Impression: - The entire main bile duct was dilated, uncertain significance. - The patient has had a cholecystectomy. - Choledocholithiasis was found. Complete removal was accomplished by biliary sphincterotomy and balloon extraction. - A biliary sphincterotomy was performed. - The biliary tree was swept. Procedure Code(s): --- Professional --- 29565, Endoscopic retrograde cholangiopancreatography (ERCP); with placement of endoscopic stent into biliary or pancreatic duct, including pre- and post-dilation and guide wire passage, when performed, including sphincterotomy, when performed, each stent 58530, Endoscopic retrograde cholangiopancreatography (ERCP); with removal of calculi/debris from biliary/pancreatic duct(s) 25317, 59, Moderate sedation services provided by the same physician or other qualified health continuum of care manager performing the diagnostic or therapeutic service that the sedation supports, requiring the presence of an independent trained observer to assist in the monitoring of the patient's level of consciousness and physiological status; initial 15 minutes of intraservice time, patient age 5 years or older CPT copyright 2017 [employer]. All rights reserved. The codes documented in this report are preliminary and upon video specialist review may be revised to meet current compliance requirements. Luis Felipe Brewster DO 11/07/2021 9:06:54 AM This report has been signed electronically. Number of Addenda: 0 Note Initiated On: 11/07/2021 8:00 AM
[2021-11-07] MEDS: Ursodiol 250 MG Tablet PO (10:17)
--- NOTE | 2021-11-07 11:40 | PCM.DC ---
Discharge Instructions Diet Discharge Diet: Low fat / Low cholesterol Follow Up Care Test Results: Test results from this visit will be discussed in further detail at your follow-up appointment, if applicable. Discharge Plan Admission Admit Date/Time: 11/06/21 05:33 Attending Provider: Rene Bird Primary Care Provider: Care Physician,No Primary Consulting Providers: Luis Felipe Brewster Discharge Orders/Prescriptions Prescriptions: New ursodiol 250 mg Tablet 250 mg PO BID Qty: 60 RF: 2 nicotine 21 mg/24 hr Patch 24 Hour 21 mg transdermal DAILY Qty: 30 RF: 0 levofloxacin 500 mg tablet 500 mg PO DAILY Qty: 6 RF: 0 Referrals / Follow Up: Luis Felipe Brewster DO [STAFF PHYSICIAN] - Within 2 Weeks (for choledocholithiasis and Biliary stent) Care Physician,No Primary [Primary Care Provider] - Within 2 Weeks Disposition Disposition (needs filled in before D/C Order can be placed): Home, Self Care
--- NOTE | 2021-11-07 12:52 | DS.PCM_ITS ---
Providers Date of Admission: 11/06/21 Date of Discharge: 11/07/21 Primary Care Physician: Lianna Primary Care Phys Consultations 11/06/21 06:23 Consult: Gastroenterology Routine Consulting Provider: Luis Felipe Brewster Reason for Consult: Gallbladder disease EMERGENT Consult: No MD Notified: Yes Date Notified: 11/06/21 Time Notified: 06:47 Method of Notification: Text Reason For Visit: POSSIBLE ASCENDING CHOLANGITIS Diagnosis Discharge Diagnosis (1) Choledocholithiasis: Status: Acute Code(s): K80.50 - Calculus of bile duct without cholangitis or cholecystitis without obstruction (2) Ascending cholangitis: Status: Acute Code(s): K83.09 - Other cholangitis Medications at Discharge Home Medications levofloxacin 500 mg PO DAILY #6 tab 11/07/21 nicotine 21 mg TRANSDERMAL DAILY #30 ea 11/07/21 ursodiol 250 mg PO BID #60 tab 11/07/21 Hospital Course Summary of Care Provided Hospital Course: Is a 38-year-old patient when prior history of cholecystectomy, ERCP status post stent was admitted with sudden onset of severe right upper quadrant abdominal pain fever chills and leukocytosis few hours prior to ED presentation. Patient was admitted to [facility]. Further hospital course, evaluation and management as follows 1. Ascending cholangitis with choledocholithiasis: Patient admitted with right upper quadrant abdominal pain, fever and chills, leukocytosis with left shift but clinically did not had jaundice. Patient has seen animal control specialist Dr. Orr in [facility] and had 2 episodes of choledocholithiasis. First time he had cholecystectomy. Second episode in March 2020 when he had ERCP with a stent placement then repeat ERCP in first week of July for stent removal. Since then he did not had issues of abdominal pain. Patient was started on IV antibiotic Zosyn. During hospital course, patient remained afebrile, abdominal pain has resolved. Patient was started on clear liquid diet. The patient was evaluated by animal control specialist Dr. Brewster. Repeat liver chemistry in afternoon shows increase in ALT therefore it was decided to do ERCP. Lipase normal. Anion gap below 4. CT abdomen independently reviewed. It shows pneumo bilia with surgical clips has been requested today. Normal spleen and pancreas. Right upper quadrant sonogram ordered. Started on ursodiol to 50 mg twice daily to be continued for 1 year. Right upper quadrant sonogram shows similar to CT abdomen hepatomegaly, heterogeneous liver possible fatty infiltration and pneumobilia. ERCP done on 11/07 with a sphincterotomy. Choledocholithiasis was found, biliary swept performed with insertion of metallic stent. Morning liver chemistry shows improvement in total bilirubin, AST, ALT. Alkaline phosphatase increased to 154. Leukocytosis resolved. Discussed with GI. We agreed to discharge on Levaquin to complete a total of 7 days of antibiotic. Follow-up in GI clinic in 2 weeks. Plan of management, discharge instruction, antibiotic and medications discussed with the patient and his in the room. 2. Chronic chronic cigarette smoking/nicotine use and dependence: The patient smokes cigarettes about 2 packs/day. Nicotine patch prescribed. 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 Denies history of chronic shortness of breath/dyspnea but has mild smoker's cough as he described. Never been tested for PFT. 3. Chronic alcohol abuse Drinks about 1 to 4 cans of beer per day. Reportedly previously he was a heavy drinker. Denies history of withdrawal with previous hospitalizations. Clinical monitoring. No withdrawal symptoms during hospital course Discharge medication reconciliation done. Discharge follow-up instructions completed. Discharge process discussed with the patient and all questions were answered to patient's satisfaction. Discharged home Total time spent, exact 35 minutes on discharge meds reconciliation, examinat ion, coordination of care with nurses and ancillary staff, review of imaging and blood test and discussion with the patient on follow-up instructions Physical Exam Narrative General: Alert, Oriented x3, Cooperative HEENT: Atraumatic, PERRLA, EOMI, Normocephalic. No icterus. Oral: No Gingival or Mucosal Lesions/ Ulcerations Neck: Supple, No JVD, Negative Carotid Bruits Lungs: Air entry diminished in bilateral lung bases. No crepitation/rhonchi Cardiovascular: Regular rate, Regular Rhythm, Normal S1, Normal S2, No murmurs Abdomen: Soft, no tenderness. No distention. Bowel Sounds Present. Liver not enlarged. No palpable mass. : No renal angle tenderness. No suprapubic tenderness. Extremities: No edema, Capillary Refill Less than 3 Seconds Skin: No rashes, No breakdown Musculoskeletal: No Tenderness to Palpation of Joints or Extremities Neurological: Cranial nerves II-XII grossly intact, DTR 2+/4 and Symmetrical, Neuro grossly intact Psych/Mental Status: Normal Affect, Appropriate. Weight / BMI Weight Weight: 146 lb 13.246 oz Body Mass Index (BMI) 23.7 ABG / Lab / Microbiology Data Result Diagrams: 11/07/21 05:57 11/07/21 05:57 Laboratory: Laboratory Results - last 24 hr 11/07/21 05:57: WBC 6.7, RBC 4.70, Hgb 14.4, Hct 43.5, MCV 92.6, MCH 30.6, MCHC 33.1 D, RDW Std Deviation 47.5 H, RDW Coeff of Faizan 13.8, Plt Count 282, MPV 10.4, Immature Gran % (Auto) 0.100, Neut % (Auto) 72.6 H, Lymph % (Auto) 13.2 L, Bell % (Auto) 8.2, Eos % (Auto) 5.2 H, Baso % (Auto) 0.7, Absolute Neuts (auto) 4.9, Absolute Lymphs (auto) 0.89, Nucleated RBC % 0 11/07/21 05:57: Sodium 137, Potassium 4.0, Chloride 109 H, Carbon Dioxide 26.0, Anion Gap 2 L, BUN 13, Creatinine 1.04, Estim Creat Clear Calc 78.39, Est GFR (MDRD) Af Amer 98, Est GFR (MDRD) Non-Af 81, BUN/Creatinine Ratio 12.5, Glucose 101, Calcium 8.9, Total Bilirubin 1.20 H, AST 124 H, ALT 349 H, Alkaline Phosphatase 154 H, Total Protein 6.8, Albumin 3.1 L, Globulin 3.7, Albumin/Globulin Ratio 0.8 L Microbiology: Microbiology 11/06/21 04:44 Blood Culture (Wb) - Anticubital Right Blood Culture - Preliminary No growth in 48 hours. 11/06/21 04:40 Blood Culture (Wb) - Anticubital Left Blood Culture - Preliminary No growth in 48 hours. Radiography Diagnostic Testing: Radiology Impression Abdomen Ultrasound 11/06/21 09:09 IMPRESSION: 1. Hepatomegaly. 2. Somewhat heterogeneous liver which may reflect fatty infiltration or hepatomegaly disease. 3. Status post cystectomy. 4. Pneumobilia. Electronically Signed: Slade Lloyd, at 15:50 EST , ERCP X-Ray 11/07/21 08:00 D/C Instructions Discharge Diet: Low fat / Low cholesterol Meaningful Use Info Meaningful Use Diagnoses (Choose all that apply): None applicable Discharge Plan Admission Admit Date/Time: 11/06/21 05:33 Attending Provider: Rene Bird Primary Care Provider: Care Physician,No Primary Consulting Providers: Luis Felipe Brewster Discharge Orders/Prescriptions Prescriptions: New ursodiol 250 mg Tablet 250 mg PO BID Qty: 60 RF: 2 nicotine 21 mg/24 hr Patch 24 Hour 21 mg transdermal DAILY Qty: 30 RF: 0 levofloxacin 500 mg tablet 500 mg PO DAILY Qty: 6 RF: 0 Referrals / Follow Up: Luis Felipe Brewster DO [STAFF PHYSICIAN] - Within 2 Weeks (for choledocholithiasis and Biliary stent) Care Physician,No Primary [Primary Care Provider] - Within 2 Weeks Disposition Disposition (needs filled in before D/C Order can be placed): Home, Self Care Charges/Coding Visit Charges Inpatient E&M: 66597 Disch Hosp
[2021-11-09 08:10] LABS: HEPATITIS B SURFACE AG Negative (Negative); Hepatitis A IgM Antibody Negative (Negative); Hepatitis B Core AB IgM Negative (Negative)
[2021-11-10 13:47] LABS: Hep C Antibodies 0.2 s/co ratio (0.0-0.9)
[2021-11-10 13:49] LABS: Carbohydrate AG 19-9 13 U/mL (0-35)
== END 2021-11-07 13:15 | disposition home or self-care (01) | DRG 446 ==
LOC: ED 05:42 → MS3 05:51
PROVIDERS: Internal Medicine Gastroenterology; Admitting Provider Hospitalist; Emergency Provider Emergency Medicine; Visit Provider Internal Medicine
PROC: 0FC98ZZ Extirpation of Matter from Common Bile Duct, Via Natural or Artificial Opening Endoscopic (ICD-10-PCS; CPT 43260; principal; 2021-11-07 08:15)
DX: K80.31 Calculus of bile duct with cholangitis, unspecified, with obstruction (principal); F10.10 Alcohol abuse, uncomplicated; F17.210 Nicotine dependence, cigarettes, uncomplicated
CPT/HCPCS: 36415; 74177; 74328; 76000; 76705; 80053; 80074; 80076; 81001; 82977; 83605; 83690; 85025; 86301; 87040; 88305; 88313; 99284; 99406; J7030; Q9967; A4216; J2405

== ENCOUNTER 2022-02-17 07:27 | Emergency (ER) | payer OTHER, SELFPAY ==
[2022-02-17 07:28] VITALS: BP 149/83; PULSE 88; RESP 16; TEMP 38.4; O2SAT 97; BMI 24.6
--- NOTE | 2022-02-17 07:46 | EX.ED.DYSGE1 ---
HPI History of Present Illness Chief Complaint: Fever Informant: patient and spouse/S.O. Onset/Context/Timing Onset: Yesterday Context: Gradual Onset Timing: Continuous Quality: fever, chills Location: generalized Current Severity: Moderate Maximum Severity: Moderate Worsened by: nothing Relieved by: nothing; hasn't tried any treatments Narrative Narrative: Patient started having fever and chills last night, similar up to 103 this morning along with myalgias, headaches, mild cough, nausea without abdominal pain, and no other symptoms. Unvaccinated against COVID, no known contact with anyone with COVID recently that he knows of. [facility] Medical History Alcohol use Anxiety Choledocholithiasis Pneumobilia Smoker Transaminitis Home Medications ursodiol 250 mg PO BID #60 tab 11/07/21 [Rx Last Taken Unknown] Allergy/AdvReac Type Severity Reaction Status Date / Time No Known Allergies Allergy Verified 02/17/22 07:30 Family History (Updated 11/06/21 @ 06:[address] Efraín Virgen MD) Other Diabetes Heart disease Hypertension Surgical History (Updated 11/07/21 @ 06:28 by Asuncion Bond) History of cholecystectomy Social History Smoking Status: Current every day smoker tobacco type: cigarettes alcohol intake: current ROS ROS ED Constitutional Constitutional ED: Reports body ache(s), chills, fever(s), headache(s) and malaise Eyes Eyes: Denies change in vision or diplopia ENT ENT ED: Denies rhinorrhea or sore throat Cardiovascular Cardiovascular: Denies chest pain or palpitations Respiratory/Chest Respiratory/Chest: Reports cough; Denies dyspnea Gastrointestinal Gastrointestinal: Denies abdominal pain, diarrhea, nausea or vomiting Genitourinary Genitourinary ED: Denies dysuria or hematuria Musculoskeletal Musculoskeletal: Denies back pain or neck pain Integumentary Denies abscess or rash Neurologic Neurologic: Reports headache(s); Denies paresthesias or weakness Psychiatric Psychiatric: Denies anxiety or suicidal thoughts EXAM Physical Exam Const Vital Signs: 02/17/22 07:28 02/17/22 07:55 02/17/22 08:03 Temperature 101.2 F H 101.2 F H Temperature Source Temporal Temporal Pulse Rate 88 88 Respiratory Rate 16 16 Respiratory Effort Normal Non-Labored Respiratory Pattern Normal Blood Pressure 149/83 H 149/83 H Blood Pressure Mean 105 105 Pulse Ox 97 97 Oxygen Delivery Method Room Air Room Air Positive well nourished and well developed General Appearance ED: well developed and NAD HEENT Reports moist mucous membranes normocephalic and atraumatic Eyes PERRL and EOMs intact bilaterally Neck full ROM and supple Resp normal respiratory effort and clear to auscultation bilaterally Effort and Inspection: able to speak in complete sentences Cardio regular rate, regular rhythm and no murmurs Rate: Negative for tachycardic GI non-tender and non-distended Auscultation: normoactive bowel sounds Palpation: soft Back/Spine no CVA tenderness General Back: other FROM Extremity normal to inspection General Extremety ED: Negative for edema, pulses abnormal or tenderness General Extremity: Negative for edema or pulses abnormal Neuro oriented x3, CN's II-XII intact bilaterally, no sensory deficits noted and gait normal Sensorium / Orientation: awake and alert Motor Exam: strength 5/5 throughout Skin no rashes or lesions noted and no wounds MDM MDM MDM Narrative Medical decision making narrative: COVID is positive as suspected in this patient. Influenza negative. I do not think he needs any more testing here. He was given Tylenol for his temperature, his pulse ox is 97% on room air and he has no dyspnea. Patient does not meet the criteria laid out in the EUA for Paxlovid or molnupirnavir. Additionally, he does not meet criteria for risk groups 1-4 for monoclonal antibody infusion therapy. Therefore is given appropriate restrictions/precautions, advised to check his pulse ox at home. We discussed reasons to return. Discharge Plan Triage Chief Complaint: Fever ED Provider: Hasmukh Pizano Dx/Rx/DC Orders Clinical Impression: COVID-19 Instructions: Coronavirus Disease 2019 (COVID-19): Caring for Yourself or Others Prescriptions: No Action ursodiol 250 mg Tablet 250 mg PO BID Qty: 60 RF: 2 Primary Care Provider: Care Physician,No Primary Referrals: Hiwot Ashraf, DO [STAFF PHYSICIAN] - (If you do not have a primary care doctor already) Care Physician,No Primary [Primary Care Provider] - Activity Restrictions/Additional Instructions: Try to get a home portable pulse oximeter and closely watch your oxygen levels periodically. If you stay below 90% for more than a minute or so, and/or you are feeling like your breathing is getting worse, return to the emergency department for further evaluation. Disposition Disposition: Home, Self Care
[2022-02-17] MEDS: Acetaminophen 500 MG Tablet 1000 MG PO (07:53)
[2022-02-17] MEDS: Ondansetron ODT 4 MG Tablet 8 MG PO (07:53)
[2022-02-17 07:55] VITALS: BP 149/83; PULSE 88; RESP 16; TEMP 38.4; O2SAT 97
[2022-02-17 09:18] VITALS: RESP 18
== END 2022-02-17 09:27 | disposition home or self-care (01) ==
PROVIDERS: Emergency Provider Emergency Medicine; Visit Provider Emergency Medicine
DX: U07.1 COVID-19 (principal); F17.210 Nicotine dependence, cigarettes, uncomplicated
CPT/HCPCS: 87428; 99283

== ENCOUNTER 2023-05-18 10:25 | Day surgery (SDC) | payer OTHER, SELFPAY ==
--- NOTE | 2023-05-18 10:36 | EKG12_ITS ---
Test Reason : Blood Pressure : / mmHG Vent. Rate : 069 BPM Atrial Rate : 069 BPM P-R Int : 150 ms QRS Dur : 086 ms QT Int : 406 ms P-R-T Axes : 076 083 061 degrees QTc Int : 435 ms Normal sinus rhythm Normal ECG No previous ECGs available Confirmed by OBINNA TRAN, RADHA ([id number]), technical editor ANAYELI BELLO ([id number]) on 06/20/2023 2:20:17 PM Referred By: No Primary Care Physician Confirmed By:RADHA YEBOAH MD
[2023-05-18] MEDS: Lactated Ringers 1,000 ML 15 ML IV (11:00)
[2023-05-18 11:01] VITALS: BP 129/93; PULSE 74; RESP 18; TEMP 36.5; O2SAT 98; BMI 24.3
--- NOTE | 2023-05-18 11:34 | HP.PCM_ITS ---
HPI - General General Date of Admission: 05/18/23 Date of Service: 05/18/23 Chief Complaint: stent removal HPI Narrative GARRETT CHRISTENSEN, is a 47 M who presents today for stent removal. 38-year-old patient when prior history of cholecystectomy, presented to the hospital with sudden onset of severe right upper quadrant abdominal pain fever chills and leukocytosis few hours prior to ED presentation. Patient was admitted to [facility]. He was diagnosed with a sending cholangitis Patient has seen bookkeeping clerk Dr. Orr in [facility] and had 2 episodes of choledocholithiasis. First time he had cholecystectomy. Second ep isode in March 2020 when he had ERCP with a stent placement then repeat ERCP in first week of July for stent removal. Since then he did not had issues of abdominal pain. Patient was started on IV antibiotic Zosyn. During hospital course, patient remained afebrile, abdominal pain has resolved. Patient was started on clear liquid diet. The patient was evaluated by bookkeeping clerk Dr. Brewster. Repeat liver chemistry in afternoon shows increase in ALT therefore it was decided to do ERCP. Lipase normal. CT abdomen independently reviewed. It shows pneumobilia with surgical clips h as been requested today. Normal spleen and pancreas. Right upper quadrant sonogram ordered. Started on ursodiol to 50 mg twice daily to be continued for 1 year. Right upper quadrant sonogram shows similar to CT abdomen hepatomegaly, heterogeneous liver possible fatty infiltration and pneumobilia. ERCP done on 11/07 with a sphincterotomy and multiple stones removed. Choledocholithiasis was found, biliary swept performed with insertion of metallic stent. Morning liver chemistry shows improvement in total bilirubin, AST, ALT. Alkaline phosphatase increased to 154. Leukocytosis resolved. He was discharge on Levaquin to complete a total of 7 days of antibiotic. Follow- up in GI clinic in 2 weeks. Plan of management, discharge instruction, antibiotic and medications discussed with the patient and his in the room. The patient smokes cigarettes about 2 packs/day. Nicotine patch prescribed. 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 Denies history of chronic shortness of breath/dyspnea but has mild smoker's cough as he described. Never been tested for PFT. He also drinks about 1 to 4 cans of beer per day. Reportedly previously he was a heavy drinker. Denies history of withdrawal with previous hospitalizations. Clinical monitoring. No withdrawal symptoms during hospital course REPLACED BY [facility] Medical History (Updated 05/17/23 @ 13:26 by Caron Jackson) Alcohol use Anxiety Back pain Choledocholithiasis Injury of head and neck Pneumobilia Smoker Transaminitis Wears dentures Home Medications acetaminophen 500 mg tablet (Acetaminophen Extra Strength) 1,000 mg PO Q6H PRN pain 05/17/23 [History Last Taken Unknown] Allergy/AdvReac Type Severity Reaction Status Date / Time No Known Allergies Allergy Verified 05/17/23 13:13 Family History (Updated 11/06/21 @ 06:[address] Efraín Virgne MD) Other Diabetes Heart disease Hypertension Surgical History (Updated 05/17/23 @ 13:26 by Caron Jackson) History of cholecystectomy Social History Smoking Status: Current every day smoker tobacco type: cigarettes alcohol intake: current ROS Review of Systems ROS Unobtainable: other Constitutional Constitutional: Denies fatigue, fever(s), poor appetite, weight gain or weight loss ENT HEENT: Denies mouth lesions Cardiovascular Cardiovascular: Denies abdominal bloating, abdominal edema or abdominal pain Respiratory/Chest Respiratory/Chest: Denies change in mental status, change in phlegm color, chest congestion or chest tightness Gastrointestinal Gastrointestinal: Denies belching, bloating, change in bowel habits, change in stool character, chewing difficulty, coffee ground emesis, constipation, cramping, diarrhea, dyspepsia, dysphagia, early satiety, excessive flatus, fecal incontinence, heartburn, hematemesis, hematochezia, hemorrhoids, loose stools, melena, nausea, odynophagia, rectal bleeding, tenesmus, vomiting or weight changes Genitourinary Genitourinary: Denies abdominal discomfort, burning urination or itching Musculoskeletal Musculoskeletal: Reports as per HPI; Denies muscle weakness or myalgias Integumentary Integumentary: Denies jaundice Neurologic Neurologic: Denies lack of coordination or weakness Psychiatric Psychiatric: Denies confusion, depression, memory loss, mood swings, paranoia or suicidal ideation Endocrine Endocrinology: Denies systems reviewed and no addt'l complaints, except as documented Hematologic/Lymphatic Hematologic/Lymphatic: Denies anemia, easy bleeding, easy bruising or lymphadenopathy Allergic/Immunologic Allergic/Immunologic: Denies systems reviewed and no addt'l complaints, except as documented Vital Signs Vital Signs Vital Signs: 05/18/23 11:01 05/18/23 11:01 Temperature 97.7 F L Temperature Source Temporal Pulse Rate 74 Respiratory Rate 18 Respiratory Pattern Normal Blood Pressure 129/93 H Blood Pressure Mean 105 Blood Pressure Source Monitor Blood Pressure Position Semi-Fowlers Blood Pressure Location Right Arm Pulse Ox 98 Oxygen Delivery Method Room Air Weight Weight: 146 lb Body Mass Index (BMI) 24.3 Physical Exam Narrative General: Alert, Oriented x3, Cooperative HEENT: Atraumatic, PERRLA, EOMI, Normocephalic. No icterus. Oral: No Gingival or Mucosal Lesions/ Ulcerations Neck: Supple, No JVD, Negative Carotid Bruits Lungs: Air entry diminished in bilateral lung bases. No crepitation/rhonchi Cardiovascular: Regular rate, Regular Rhythm, Normal S1, Normal S2, No murmurs Abdomen: Soft, no tenderness. No distention. Bowel Sounds Present. Liver not enlarged. No palpable mass. : No renal angle tenderness. No suprapubic tenderness. Extremities: No edema, Capillary Refill Less than 3 Seconds Skin: No rashes, No breakdown Musculoskeletal: No Tenderness to Palpation of Joints or Extremities Neurological: Cranial nerves II-XII grossly intact, DTR 2+/4 and Symmetrical, Neuro grossly intact Psych/Mental Status: Normal Affect, Appropriate. Assessment & Plan Assessment/Plan (1) Ascending cholangitis: PLAN: He will undergo repeat ERCP with stent removal. He was explained alternatives, risk, benefits including outstanding bleeding, infection, sepsis, perforation, need for emergent surgery . He will have an ASA of 3. (2) Pneumobilia: PLAN: I recommend ursodiol 250 or 300 mg twice a day for 1 year to increase bile flow and change his bile.
--- NOTE | 2023-05-18 12:05 | RAD_ITS ---
EXAM: FL FLUOROSCOPY < 1 HOUR CLINICAL INDICATION: PAIN TECHNIQUE: Fluoroscopic images were obtained on a C-arm. Fluoroscopic guidance was provided by a physician. No radiologist was present during the procedure. COMPARISON: No relevant prior studies available. FINDINGS: The common bile duct was cannulated. Markedly dilated common bile duct and intrahepatic biliary ducts. Initial images demonstrate filling defects in the common bile duct which may reflect retained stones. Additional images were obtained and demonstrates clearance of the common bile duct following insertion of a balloon catheter. The distal common bile duct is not visualized. The fluoroscopy time was 2 minutes and 17 seconds. RAD/ERCP Biliary Only IMPRESSION: ERCP as described above. Electronically Signed: Slade Lloyd MD at 13:05 EDT ,
--- NOTE | 2023-05-18 12:36 | OP.ERCP_ITS ---
Patient Name: Chuck Claros Procedure Date: 05/18/2023 11:34 AM Date of : 1975 Age: 47 Procedure: ERCP Indications: Common bile duct stone(s), Stent removal Providers: Luis Felipe Brewster DO Medicines: Monitored Anesthesia Care Patient Profile: This is a 47 year old male. Refer to note in patient chart for documentation of history and physical. Patient has symptoms of acute jaundice. His most recent ERCP for biliary evaluation, ERCP for sphincterotomy, ERCP for stent and ERCP for stone removal was within the past three years. Complications: No immediate complications. Procedure: Pre-Anesthesia Assessment: - Prior to the procedure, a History and Physical was performed, and patient medications and allergies were reviewed. The patient is competent. The risks and benefits of the procedure and the sedation options and risks were discussed with the patient. All questions were answered and informed consent was obtained. Patient identification and proposed procedure were verified by the physician in the pre-procedure area. Mental Status Examination: alert and oriented. Respiratory Examination: clear to auscultation. Prophylactic Antibiotics: The patient does not require prophylactic antibiotics. Prior Anticoagulants: The patient has taken no anticoagulant or antiplatelet agents. ASA Grade Assessment: II - A patient with mild systemic disease. After reviewing the risks and benefits, the patient was deemed in satisfactory condition to undergo the procedure. The anesthesia plan was to use monitored anesthesia care (MAC). Immediately prior to administration of medications, the patient was re-assessed for adequacy to receive sedatives. The heart rate, respiratory rate, oxygen saturations, blood pressure, adequacy of pulmonary ventilation, and response to care were monitored throughout the procedure. The physical status of the patient was re-assessed after the procedure. After obtaining informed consent, the scope was passed under direct vision. Throughout the procedure, the patient's blood pressure, pulse, and oxygen saturations were monitored continuously. The Duodenoscope was introduced through the mouth, and advanced to the duodenum and used to inject contrast into the bile duct. The ERCP was accomplished without difficulty. The patient tolerated the procedure well. Scope In: 12:06:38 PM Scope Out: 12:20:52 PM Total Procedure Duration Time 0 hours 14 minutes 14 seconds Findings: The cake winder film was normal. The esophagus was successfully intubated under direct vision. The scope was advanced to a normal major papilla in the descending duodenum without detailed examination of the pharynx, larynx and associated structures, and upper GI tract. The upper GI tract was grossly normal. The bile duct was deeply cannulated with the short-nosed traction sphincterotome. Contrast was injected. I personally interpreted the bile duct images. There was brisk flow of contrast through the ducts. Image quality was excellent. Contrast extended to the entire biliary tree. Opacification of the entire opacified area and main bile duct was successful. The maximum diameter of the ducts was 12 mm. The lower third of the main bile duct contained three stones, the largest of which was 8 mm in diameter. The entire opacified area, main bile duct, common hepatic duct and left and right hepatic ducts and all intrahepatic branches were diffusely dilated, with a stone causing an obstruction. The largest diameter was 12 mm. A cholecystectomy had been performed. A straight Roadrunner wire was passed into the biliary tree. A 5 mm biliary sphincterotomy was made with a braided traction (standard) sphincterotome using ERBE electrocautery. The sphincterotomy oozed blood. To discover objects, the biliary tree was swept with a 12 mm balloon starting at the left intrahepatic duct(s). Sludge was swept from the duct. All stones were removed. One stent was removed from the biliary tree using a rat-toothed forceps. The stent was found to be partially occluded via the water column test. Impression: - The entire main bile duct, left and right hepatic ducts and all intrahepatic branches and common hepatic duct were dilated, with a stone causing an obstruction. - The patient has had a cholecystectomy. - Choledocholithiasis was found. Complete removal was accomplished by biliary sphincterotomy and balloon extraction. - A biliary sphincterotomy was performed. - The biliary tree was swept. - One stent was removed from the biliary tree. Procedure Code(s): --- Professional --- 67921, Endoscopic retrograde cholangiopancreatography (ERCP); with removal of foreign body(s) or stent(s) from biliary/pancreatic duct(s) 53501, Endoscopic retrograde cholangiopancreatography (ERCP); with removal of calculi/debris from biliary/pancreatic duct(s) 73564, Endoscopic retrograde cholangiopancreatography (ERCP); with sphincterotomy/papillotomy 28387, 26, Endoscopic catheterization of the biliary ductal system, radiological supervision and interpretation CPT copyright 2021 [employer]. All rights reserved. The codes documented in this report are preliminary and upon market research analyst review may be revised to meet current compliance requirements. Luis Felipe Brewster DO 05/18/2023 12:36:11 PM This report has been signed electronically. Number of Addenda: 0 Note Initiated On: 05/18/2023 11:34 AM
--- NOTE | 2023-05-18 12:36 | OP.CCLET_ITS ---
05/18/2023 No Primary Care Physician Re : ERCP procedure for Chuck Claros Dear Care Physician This procedure was performed on May. My impressions and recommendations are as follows: Impressions : - The entire main bile duct, left and right hepatic ducts and all intrahepatic branches and common hepatic duct were dilated, with a stone causing an obstruction. - The patient has had a cholecystectomy. - Choledocholithiasis was found. Complete removal was accomplished by biliary sphincterotomy and balloon extraction. - A biliary sphincterotomy was performed. - The biliary tree was swept. - One stent was removed from the biliary tree. Recommendations : My findings are described in the full procedure note, which is enclosed. If I can be of further assistance, please feel free to contact me at . Sincerely, Luis Felipe Brewster, 05/18/2023 12:36:11 PM This report has been signed electronically.
[2023-05-18 12:38] VITALS: BP 103/67; BP 129/93; PULSE 77; RESP 16; TEMP 36.3; O2SAT 96
[2023-05-18 12:45] VITALS: BP 129/93; BP 98/68; PULSE 73; RESP 16; O2SAT 94
[2023-05-18 13:00] VITALS: BP 129/93; BP 85/59; PULSE 68; RESP 16; O2SAT 16
[2023-05-18 13:09] VITALS: BP 103/61; BP 129/93; PULSE 67; RESP 16; TEMP 36.3; O2SAT 99
[2023-05-18 13:25] VITALS: BP 129/93
== END 2023-05-18 13:46 | disposition home or self-care (01) ==
LOC: EN 10:28 → AC 10:29
PROVIDERS: Visit Provider Internal Medicine Gastroenterology
PROC: (CPT 43260; principal; 2023-05-18 11:10)
DX: K80.31 Calculus of bile duct with cholangitis, unspecified, with obstruction (principal); K83.8 Other specified diseases of biliary tract; F17.210 Nicotine dependence, cigarettes, uncomplicated
CPT/HCPCS: 43275; 43264; 43262; 74328; 76000; 93005; J7120; J2405